=== PATIENT | female | born 1945 | race Caucasian/White ===

== ENCOUNTER 2023-12-27 05:32 | Inpatient (IN) | payer OTHER ==
[~2023-12-27] VITALS: Ht 170.2 cm; Wt 88.0 kg
[2023-12-27 06:07] VITALS: BP_SYST 160; PULSE 72; RESP 16; TEMP 83.2; O2SAT 98
[2023-12-27 08:04] LABS: ALANINE AMINOTRANSFERASE 42 U/L (12-78); ALBUMIN 3.7 g/dL (3.4-4.8); ANION GAP 14 (5-15); ASPARTATE AMINOTRANSFERASE 44 U/L (10-37); BILIRUBIN,DIRECT 0.1 mg/dL (0.0-0.3); CALCIUM 10.1 mg/dL (8.4-11.0); CARBON DIOXIDE 27 mmol/L (23-29); CHLORIDE 101 mmol/L (98-107); CREATINE KINASE, TOTAL 53 U/L (26-192); CREATININE 2.43 mg/dL (0.55-1.30); GLUCOSE 136 mg/dL (74-106); SALICYLATE 1 mg/dL (3-30); SODIUM SERUM 142 mmol/L (136-145); TOTAL BILIRUBIN 0.4 mg/dL (0.0-1.0); TOTAL PROTEIN, SERUM 6.8 g/dL (6.4-8.3); UREA NITROGEN, BLOOD 58 mg/dL (8-21)
[2023-12-27 08:06] LABS: BASOPHILS % (AUTO) 0.3 % (0.0-2.0); EOSINOPHILS % (AUTO) 0.5 % (0.0-4.0); HEMATOCRIT 33.6 % (36-48); HEMOGLOBIN 11.4 g/dL (12.0-16.0); LYMPHOCYTES # (AUTO) 0.2 K/uL (1.0-5.5); LYMPHOCYTES % (AUTO) 3.7 % (20.5-51.5); MEAN CORPUSCULAR HEMOGLOBIN 31 pg (27-31); MEAN CORPUSCULAR HGB CONC 34 % (32-36); MEAN CORPUSCULAR VOLUME 92 fL (79.0-98.0); MONOCYTES # (AUTO) 0.1 K/uL (0.0-1.0); MONOCYTES % (AUTO) 2.6 % (1.7-9.3); NEUTROPHILS # (AUTO) 4.7 K/uL (1.8-7.7); NEUTROPHILS % (AUTO) 92.9 % (40.0-70.0); PLATELET COUNT (AUTO) 309 K/uL (130-430); RED BLOOD CELL COUNT(AUTO) 3.67 MIL/uL (4.2-6.2); RED CELL DISTRIBUTION WIDTH 15.8 % (9.0-15.0); WHITE BLOOD COUNT (AUTO) 5.1 K/uL (4.8-10.8)
[2023-12-27 08:08] LABS: ACETAMINOPHEN < 1 ug/mL (1-30)
[2023-12-27 08:09] LABS: ALCOHOL, BLOOD < 3 mg/dL (<10)
[2023-12-27 08:30] LABS: PROTHROMBIN TIME 10.3 SECS (9.5-12.5)
[2023-12-27 08:49] LABS: ACETONE, SERUM NEGATIVE (NEGATIVE)
[2023-12-27] MEDS: NACL 0.9% 1,000 ML IV ONE (09:21)
[2023-12-27 10:33] LABS: BILIRUBIN,URINE NEGATIVE (NEGATIVE); BLOOD, URINE NEGATIVE (NEGATIVE); CLARITY/URINE CLEAR (CLEAR); COLOR,URINE YELLOW (YELLOW); GLUCOSE,URINE NEGATIVE (NEGATIVE); KETONES,URINE NEGATIVE (NEGATIVE); LEUKOCYTE ESTERASE ,URINE NEGATIVE (NEGATIVE); NITRITE, URINE NEGATIVE (NEGATIVE); PH,URINE 5.5 (5.0-8.0); PROTEIN URINE NEGATIVE (NEGATIVE); UROBILINOGEN,URINE 0.2 (0.2-1.0)
[2023-12-27 11:21] LABS: BARBITURATE, URINE NEGATIVE (NEG <=200); BENZODIAZEPINE, URINE NEGATIVE (NEG <=150); CANNABINOID, URINE NEGATIVE (NEG <=50); COCAINE, URINE NEGATIVE (NEG <=150); METHAMPHETAMINES SCREEN,URINE NEGATIVE (NEG <=500); PHENCYCLIDINE SCREEN,URINE NEGATIVE (NEG <=25); URINE AMPHETAMINE NEGATIVE (NEG <=500); URINE METHADONE NEGATIVE (NEG <=200); URINE OXYCODONE SCREEN NEGATIVE (NEG <=100)
[2023-12-27 11:22] LABS: OPIATE, URINE POSITIVE (NEG <=100); UR TRICYCLIC ANTIDEPRESSANTS NEGATIVE (NEG <=300)
[2023-12-27 11:26] LABS: ALBUMIN 3.3 g/dL (3.4-4.8); BILIRUBIN,DIRECT 0.1 mg/dL (0.0-0.3); FREE T4 (FREE THYROXINE) 0.8 ng/dL (0.6-1.6); THYROID STIMULATING HORMONE 7.52 uIu/mL (0.34-4.82); TOTAL BILIRUBIN 0.3 mg/dL (0.0-1.0); TOTAL PROTEIN, SERUM 6.1 g/dL (6.4-8.3)
[2023-12-27] MEDS ORDERED: LORazepam 2 MG/ML VIAL IVP PRN (12:00)
[2023-12-27] MEDS ORDERED: HYDROcodone/ACETAMIN 5-325 MG TAB (NORCO/ VICODIN) PO PRN (12:00)
[2023-12-27] MEDS ORDERED: ONDANSETRON HCL 4 MG/2 ML VIAL IVP PRN (12:00)
[2023-12-27] MEDS ORDERED: ACETAMINOPHEN 325 MG TABLET PO PRN (12:00)
[2023-12-27] MEDS ORDERED: INSULIN LISPRO SLIDING SCALE 100 UNITS/ML, 3 ML VIAL (humaLOG) SUBCUT PRN (12:00)
[2023-12-27] MEDS ORDERED: CEFEPIME 1 GM/VIAL (MAXIPIME) ONE (16:09)
[2023-12-27] MEDS ORDERED: MIDO5TAB4 PO (17:00)
[2023-12-27] MEDS ORDERED: FERR-69 PO (17:00)
[2023-12-27] MEDS ORDERED: DOCU-144 PO (17:00)
[2023-12-27] MEDS ORDERED: ROPI3TAB21 PO (17:00)
[2023-12-27] MEDS ORDERED: FURO40TA5 PO (17:00)
[2023-12-27] MEDS ORDERED: GABA-529 PO (17:00)
[2023-12-27] MEDS ORDERED: TAMS-11 PO (17:00)
[2023-12-27] MEDS ORDERED: SENN8.6T19 PO (17:00)
[2023-12-27] MEDS ORDERED: ATOR40TA68 PO (17:00)
[2023-12-27] MEDS ORDERED: PRO40 PO (17:00)
[2023-12-27] MEDS ORDERED: CLOB59LO3 TP (17:00)
[2023-12-27] MEDS ORDERED: CEPH-548 PO (17:06)
[2023-12-27] MEDS ORDERED: BISA10SU61 RC (17:06)
[2023-12-27] MEDS ORDERED: MOM PO (17:06)
[2023-12-27] MEDS ORDERED: PANT40TA45 PO (17:06)
[2023-12-27] MEDS ORDERED: CLOB15OI17 (17:06)
[2023-12-27] MEDS ORDERED: HYDR-3917 PO (17:06)
[2023-12-27] MEDS ORDERED: TRAM50TA2 PO (17:06)
[2023-12-27] MEDS ORDERED: FLEET RC (17:06)
[2023-12-27] MEDS ORDERED: LACT10SO7 PO (17:06)
[2023-12-27] MEDS ORDERED: BACTROBAN TP (17:06)
[2023-12-27] MEDS ORDERED: VANCOMYCIN HCL 500 MG/VIAL IV ONE ×2 (17:39→19:13)
[2023-12-27] MEDS: DEXTROSE 50% JECT 50 ML DISP.SYRIN IVP PRN (17:40)
[2023-12-27] MEDS: CEFEPIME 1 GM in D5W 50 ML IV ONE (17:40)
[2023-12-27] MEDS: VANCOMYCIN HCL 500 MG in NS 100 ML IV SCH (17:43)
[2023-12-27] MEDS ORDERED: NACL 0.9% 1,000 ML IV SCH (18:30)
[2023-12-27] MEDS: NACL 0.9% 500 ML IV ONE (22:09)
[2023-12-27] MEDS: KCL 20 mEq in D5/0.45NS 1000mL 1,000 ML IV SCH (22:38)
[2023-12-27] MEDS: KCL 20 mEq in D5/0.45NS 1000mL 1,000 ML IV ONE (22:39)
[2023-12-28] VITALS (8 sets, daily range): BP systolic 95–132; PULSE 78–93; RESP 14–20; TEMP 96.6–98.9; O2SAT 95–99
[2023-12-28] MEDS: LEVOTHYROXINE SODIUM 0.025 MG TABLET PO SCH (06:15)
[2023-12-28 07:38] LABS: ALANINE AMINOTRANSFERASE 36 U/L (12-78); ALBUMIN 3.1 g/dL (3.4-4.8); ANION GAP 12 (5-15); ASPARTATE AMINOTRANSFERASE 43 U/L (10-37); CALCIUM 9.1 mg/dL (8.4-11.0); CARBON DIOXIDE 25 mmol/L (23-29); CHLORIDE 108 mmol/L (98-107); CREATININE 2.45 mg/dL (0.55-1.30); GLUCOSE 88 mg/dL (74-106); PHOSPHORUS 4.2 mg/dL (2.7-4.5); POTASSIUM 3.8 mmol/L (3.5-5.1); SODIUM SERUM 145 mmol/L (136-145); TOTAL BILIRUBIN 0.4 mg/dL (0.0-1.0); TOTAL PROTEIN, SERUM 6.2 g/dL (6.4-8.3); UREA NITROGEN, BLOOD 53 mg/dL (8-21)
[2023-12-28 07:39] LABS: BASOPHILS % (AUTO) 0.3 % (0.0-2.0); EOSINOPHILS # (AUTO) 0.1 K/uL (0.0-0.4); EOSINOPHILS % (AUTO) 2.4 % (0.0-4.0); HEMOGLOBIN 10.6 g/dL (12.0-16.0); LYMPHOCYTES # (AUTO) 0.3 K/uL (1.0-5.5); LYMPHOCYTES % (AUTO) 4.7 % (20.5-51.5); MEAN CORPUSCULAR HEMOGLOBIN 31 pg (27-31); MEAN CORPUSCULAR HGB CONC 33 % (32-36); MEAN CORPUSCULAR VOLUME 93 fL (79.0-98.0); MONOCYTES # (AUTO) 0.4 K/uL (0.0-1.0); MONOCYTES % (AUTO) 6.4 % (1.7-9.3); NEUTROPHILS # (AUTO) 5.3 K/uL (1.8-7.7); NEUTROPHILS % (AUTO) 86.2 % (40.0-70.0); PLATELET COUNT (AUTO) 276 K/uL (130-430); RED BLOOD CELL COUNT(AUTO) 3.43 MIL/uL (4.2-6.2); RED CELL DISTRIBUTION WIDTH 16.6 % (9.0-15.0); WHITE BLOOD COUNT (AUTO) 6.2 K/uL (4.8-10.8)
[2023-12-28 08:28] LABS: HEMOGLOBIN A1C 5.1 % (<5.7)
[2023-12-28] MEDS: DEXTROSE 50% JECT 50 ML DISP.SYRIN IVP ONE (09:18)
[2023-12-28] MEDS: CEFEPIME 1 GM in D5W 50 ML IV SCH (09:50)
[2023-12-28] MEDS: KCL 20 mEq in D5/0.45NS 1000mL 1,000 ML IV SCH (09:55)
[2023-12-28 11:05] LABS: BLOOD GAS PH 7.342 (7.350-7.450)
[2023-12-28 11:06] LABS: ABG O2 SAT% ESTIMATE 95.1 % (94.0-98.0); ALLEN'S TEST POSITIVE (P); BLOOD GAS BASE EXCESS 11.3 mmol/L (-2.0-3.0); BLOOD GAS HCO3 22.6 mmol/L (21.0-28.0); BLOOD GAS PCO2 42.6 mmHg (32.0-45.0); BLOOD GAS PO2 79.2 mmHg (83.0-108.0)
[2023-12-28] MEDS: HEPARIN SODIUM,PORCINE 5,000 UNITS/ML VIAL SUBCUT SCH (11:59)
[2023-12-29 00:02] VITALS: BP_SYST 113; PULSE 76; RESP 19; TEMP 98
[2023-12-29 08:00] VITALS: BP_SYST 119; PULSE 86; RESP 16; TEMP 97.3; O2SAT 96
[2023-12-29 08:10] VITALS: O2SAT 98
[2023-12-29 08:17] LABS: BASOPHILS % (AUTO) 0.6 % (0.0-2.0); EOSINOPHILS # (AUTO) 0.3 K/uL (0.0-0.4); EOSINOPHILS % (AUTO) 3.6 % (0.0-4.0); HEMATOCRIT 32.4 % (36-48); HEMOGLOBIN 10.6 g/dL (12.0-16.0); LYMPHOCYTES # (AUTO) 0.6 K/uL (1.0-5.5); LYMPHOCYTES % (AUTO) 8.1 % (20.5-51.5); MEAN CORPUSCULAR HEMOGLOBIN 31 pg (27-31); MEAN CORPUSCULAR HGB CONC 33 % (32-36); MEAN CORPUSCULAR VOLUME 94 fL (79.0-98.0); MONOCYTES # (AUTO) 0.6 K/uL (0.0-1.0); NEUTROPHILS # (AUTO) 6.1 K/uL (1.8-7.7); NEUTROPHILS % (AUTO) 79.7 % (40.0-70.0); PLATELET COUNT (AUTO) 210 K/uL (130-430); RED BLOOD CELL COUNT(AUTO) 3.46 MIL/uL (4.2-6.2); WHITE BLOOD COUNT (AUTO) 7.6 K/uL (4.8-10.8)
[2023-12-29] MEDS: BALSAM PERU/CASTOR OIL 56.7 GM OINT...G. TP SCH (08:23)
[2023-12-29 09:06] LABS: ALANINE AMINOTRANSFERASE 35 U/L (12-78); ALBUMIN 2.5 g/dL (3.4-4.8); ANION GAP 8 (5-15); CALCIUM 9.4 mg/dL (8.4-11.0); CARBON DIOXIDE 26 mmol/L (23-29); CHLORIDE 111 mmol/L (98-107); CREATININE 2.46 mg/dL (0.55-1.30); GLUCOSE 86 mg/dL (74-106); POTASSIUM 4.1 mmol/L (3.5-5.1); SODIUM SERUM 145 mmol/L (136-145); TOTAL BILIRUBIN 0.5 mg/dL (0.0-1.0); TOTAL PROTEIN, SERUM 6.1 g/dL (6.4-8.3); UREA NITROGEN, BLOOD 54 mg/dL (8-21)
[2023-12-29 10:25] LABS: ASPARTATE AMINOTRANSFERASE 74 U/L (10-37)
[2023-12-29 12:57] VITALS: BP_SYST 126; PULSE 97; RESP 18; TEMP 97; O2SAT 97
[2023-12-29 16:00] VITALS: BP_SYST 108; PULSE 93; RESP 16; TEMP 98; O2SAT 95
[2023-12-29 20:02] VITALS: BP_SYST 122; PULSE 96; RESP 19; TEMP 98.1; O2SAT 95; O2SAT 96
[2023-12-30] VITALS (7 sets, daily range): BP systolic 103–149; PULSE 79–99; RESP 16–19; TEMP 93.5–98.9; O2SAT 94–99
[2023-12-30 10:10] LABS: BASOPHILS # (AUTO) 0.1 K/uL (0.0-0.2); BASOPHILS % (AUTO) 0.5 % (0.0-2.0); EOSINOPHILS # (AUTO) 0.4 K/uL (0.0-0.4); HEMOGLOBIN 10.4 g/dL (12.0-16.0); LYMPHOCYTES # (AUTO) 0.6 K/uL (1.0-5.5)
[2023-12-30 10:24] LABS: EOSINOPHILS % (AUTO) 3.4 % (0.0-4.0); HEMATOCRIT 31.9 % (36-48); LYMPHOCYTES % (AUTO) 5.6 % (20.5-51.5); MEAN CORPUSCULAR HEMOGLOBIN 31 pg (27-31); MEAN CORPUSCULAR HGB CONC 33 % (32-36); MEAN CORPUSCULAR VOLUME 94 fL (79.0-98.0); MONOCYTES # (AUTO) 1.1 K/uL (0.0-1.0); MONOCYTES % (AUTO) 10.4 % (1.7-9.3); NEUTROPHILS # (AUTO) 8.9 K/uL (1.8-7.7); NEUTROPHILS % (AUTO) 80.1 % (40.0-70.0); PLATELET COUNT (AUTO) 190 K/uL (130-430); RED BLOOD CELL COUNT(AUTO) 3.38 MIL/uL (4.2-6.2); RED CELL DISTRIBUTION WIDTH 16.4 % (9.0-15.0)
[2023-12-30 10:34] LABS: ALANINE AMINOTRANSFERASE 35 U/L (12-78); ALBUMIN 2.7 g/dL (3.4-4.8); ANION GAP 11 (5-15); ASPARTATE AMINOTRANSFERASE 56 U/L (10-37); CALCIUM 9.9 mg/dL (8.4-11.0); CARBON DIOXIDE 24 mmol/L (23-29); CHLORIDE 111 mmol/L (98-107); CREATININE 2.15 mg/dL (0.55-1.30); GLUCOSE 82 mg/dL (74-106); POTASSIUM 4.2 mmol/L (3.5-5.1); SODIUM SERUM 146 mmol/L (136-145); TOTAL BILIRUBIN 0.8 mg/dL (0.0-1.0); TOTAL PROTEIN, SERUM 6.4 g/dL (6.4-8.3); UREA NITROGEN, BLOOD 42 mg/dL (8-21)
[2023-12-30] MEDS: levETIRAcetam 500 MG in NS 100 ML IV SCH (21:10)
[2023-12-31] VITALS (7 sets, daily range): BP systolic 108–143; PULSE 79–92; RESP 16–20; TEMP 96.8–98.2; O2SAT 98–100
[2023-12-31 07:41] LABS: BASOPHILS % (AUTO) 0.4 % (0.0-2.0); EOSINOPHILS # (AUTO) 0.5 K/uL (0.0-0.4); EOSINOPHILS % (AUTO) 5.7 % (0.0-4.0); HEMATOCRIT 29.5 % (36-48); HEMOGLOBIN 9.5 g/dL (12.0-16.0); LYMPHOCYTES # (AUTO) 0.6 K/uL (1.0-5.5); LYMPHOCYTES % (AUTO) 6.1 % (20.5-51.5); MEAN CORPUSCULAR HEMOGLOBIN 31 pg (27-31); MEAN CORPUSCULAR HGB CONC 32 % (32-36); MEAN CORPUSCULAR VOLUME 95 fL (79.0-98.0); MONOCYTES # (AUTO) 0.8 K/uL (0.0-1.0); MONOCYTES % (AUTO) 8.5 % (1.7-9.3); NEUTROPHILS # (AUTO) 7.4 K/uL (1.8-7.7); NEUTROPHILS % (AUTO) 79.3 % (40.0-70.0); PLATELET COUNT (AUTO) 189 K/uL (130-430); RED CELL DISTRIBUTION WIDTH 16.9 % (9.0-15.0); WHITE BLOOD COUNT (AUTO) 9.4 K/uL (4.8-10.8)
[2023-12-31 08:02] LABS: ALANINE AMINOTRANSFERASE 33 U/L (12-78); ALBUMIN 2.3 g/dL (3.4-4.8); ANION GAP 14 (5-15); ASPARTATE AMINOTRANSFERASE 47 U/L (10-37); CALCIUM 10.2 mg/dL (8.4-11.0); CARBON DIOXIDE 22 mmol/L (23-29); CHLORIDE 114 mmol/L (98-107); CREATININE 1.87 mg/dL (0.55-1.30); GLUCOSE 92 mg/dL (74-106); POTASSIUM 3.9 mmol/L (3.5-5.1); SODIUM SERUM 150 mmol/L (136-145); TOTAL BILIRUBIN 0.7 mg/dL (0.0-1.0); UREA NITROGEN, BLOOD 37 mg/dL (8-21)
[2024-01-01] VITALS (7 sets, daily range): BP systolic 116–143; PULSE 70–89; RESP 16–18; TEMP 97.4–99; O2SAT 95–100
[2024-01-01 09:39] LABS: BASOPHILS % (AUTO) 0.4 % (0.0-2.0); EOSINOPHILS # (AUTO) 0.6 K/uL (0.0-0.4); EOSINOPHILS % (AUTO) 6.6 % (0.0-4.0); HEMATOCRIT 27.8 % (36-48); HEMOGLOBIN 9.1 g/dL (12.0-16.0); LYMPHOCYTES # (AUTO) 0.6 K/uL (1.0-5.5); LYMPHOCYTES % (AUTO) 6.9 % (20.5-51.5); MEAN CORPUSCULAR HEMOGLOBIN 31 pg (27-31); MEAN CORPUSCULAR HGB CONC 33 % (32-36); MEAN CORPUSCULAR VOLUME 95 fL (79.0-98.0); MONOCYTES # (AUTO) 0.8 K/uL (0.0-1.0); MONOCYTES % (AUTO) 9.6 % (1.7-9.3); NEUTROPHILS # (AUTO) 6.5 K/uL (1.8-7.7); NEUTROPHILS % (AUTO) 76.5 % (40.0-70.0); PLATELET COUNT (AUTO) 195 K/uL (130-430); RED BLOOD CELL COUNT(AUTO) 2.93 MIL/uL (4.2-6.2); RED CELL DISTRIBUTION WIDTH 16.8 % (9.0-15.0); WHITE BLOOD COUNT (AUTO) 8.5 K/uL (4.8-10.8)
[2024-01-01 10:12] LABS: ALANINE AMINOTRANSFERASE 37 U/L (12-78); ANION GAP 12 (5-15); ASPARTATE AMINOTRANSFERASE 53 U/L (10-37); CALCIUM 10.3 mg/dL (8.4-11.0); CARBON DIOXIDE 22 mmol/L (23-29); CHLORIDE 117 mmol/L (98-107); GLUCOSE 98 mg/dL (74-106); POTASSIUM 3.8 mmol/L (3.5-5.1); SODIUM SERUM 151 mmol/L (136-145); TOTAL BILIRUBIN 0.8 mg/dL (0.0-1.0); TOTAL PROTEIN, SERUM 5.8 g/dL (6.4-8.3); UREA NITROGEN, BLOOD 33 mg/dL (8-21)
[2024-01-01] MEDS ORDERED: VANCOMYCIN HCL ORAL SOLUTION 25 MG/ML, 150 ML PO SCH (17:45)
[2024-01-01] MEDS: VANCOMYCIN HCL ORAL SOLUTION 25 MG/ML, 150 ML PO SCH (18:45)
[2024-01-01] MEDS: D5W 1,000 ML IV SCH (20:41)
[2024-01-02 01:44] VITALS: BP_SYST 141; PULSE 86; RESP 16; TEMP 97.5; O2SAT 97
[2024-01-02 07:25] VITALS: BP_SYST 126; PULSE 74; RESP 18; TEMP 98.4; O2SAT 99
[2024-01-02 09:00] VITALS: O2SAT 99
[2024-01-02 09:48] LABS: BASOPHILS % (AUTO) 0.3 % (0.0-2.0); EOSINOPHILS # (AUTO) 0.6 K/uL (0.0-0.4); EOSINOPHILS % (AUTO) 6.5 % (0.0-4.0); HEMATOCRIT 26.5 % (36-48); HEMOGLOBIN 8.7 g/dL (12.0-16.0); LYMPHOCYTES # (AUTO) 0.6 K/uL (1.0-5.5); LYMPHOCYTES % (AUTO) 6.1 % (20.5-51.5); MEAN CORPUSCULAR HEMOGLOBIN 31 pg (27-31); MEAN CORPUSCULAR HGB CONC 33 % (32-36); MEAN CORPUSCULAR VOLUME 95 fL (79.0-98.0); MONOCYTES # (AUTO) 0.8 K/uL (0.0-1.0); MONOCYTES % (AUTO) 7.8 % (1.7-9.3); NEUTROPHILS # (AUTO) 7.9 K/uL (1.8-7.7); NEUTROPHILS % (AUTO) 79.3 % (40.0-70.0); PLATELET COUNT (AUTO) 222 K/uL (130-430); RED CELL DISTRIBUTION WIDTH 16.7 % (9.0-15.0)
[2024-01-02 10:18] LABS: ALBUMIN 1.9 g/dL (3.4-4.8); ANION GAP 11 (5-15); CALCIUM 10.5 mg/dL (8.4-11.0); CARBON DIOXIDE 22 mmol/L (23-29); CHLORIDE 113 mmol/L (98-107); CREATININE 1.68 mg/dL (0.55-1.30); GLUCOSE 117 mg/dL (74-106); POTASSIUM 3.6 mmol/L (3.5-5.1); SODIUM SERUM 146 mmol/L (136-145); TOTAL BILIRUBIN 0.7 mg/dL (0.0-1.0); UREA NITROGEN, BLOOD 30 mg/dL (8-21)
[2024-01-02 10:32] LABS: ALANINE AMINOTRANSFERASE 86 U/L (12-78); ASPARTATE AMINOTRANSFERASE 168 U/L (10-37)
[2024-01-02 12:07] VITALS: BP_SYST 142; PULSE 82; RESP 18; TEMP 97.9; O2SAT 99
[2024-01-02 16:00] VITALS: BP_SYST 131; PULSE 69; RESP 16; TEMP 97.6; O2SAT 99
[2024-01-02 21:04] VITALS: BP_SYST 120; PULSE 70; RESP 18; TEMP 97; O2SAT 96
[2024-01-03 10:07] LABS: HEPATITIS A AB, IgM Negative (Negative); HEPATITIS B SURFACE AG Negative (Negative); HEPATITIS C VIRUS AB Non Reactive (Non Reactive)
[2024-01-03 12:07] LABS: HEPATITIS B CORE AB, IgM Negative (Negative)
== END 2024-01-03 23:00 | disposition hospice, home (50) | DRG 871 ==
LOC: SED 05:32 → STU 11:47 → UNDODISIN 01-02 23:00
PROVIDERS: ADMIT Internal Medicine; ATTEND Internal Medicine
PROC: 4A00X4Z Measurement of Central Nervous Electrical Activity, External Approach (ICD-10-PCS; principal; 2023-12-29)
PROC: 0DH67UZ Insertion of Feeding Device into Stomach, Via Natural or Artificial Opening (ICD-10-PCS; 2024-01-01)
DX: A41.9 Sepsis, unspecified organism (principal); G93.41 Metabolic encephalopathy; N17.9 Acute kidney failure, unspecified; E87.0 Hyperosmolality and hypernatremia; A04.72 Enterocolitis due to Clostridium difficile, not specified as recurrent; I49.5 Sick sinus syndrome; D64.9 Anemia, unspecified; R74.01 Elevation of levels of liver transaminase levels; N18.32 Chronic kidney disease, stage 3b; E87.6 Hypokalemia; I12.9 Hypertensive chronic kidney disease with stage 1 through stage 4 chronic kidney disease, or unspecified chronic kidney disease; R68.0 Hypothermia, not associated with low environmental temperature; G20.A1 Parkinson's disease without dyskinesia, without mention of fluctuations; I10 Essential (primary) hypertension; F02.80 Dementia in other diseases classified elsewhere, unspecified severity, without behavioral disturbance, psychotic disturbance, mood disturbance, and anxiety; R13.10 Dysphagia, unspecified; Z90.710 Acquired absence of both cervix and uterus; Z95.0 Presence of cardiac pacemaker; Z79.899 Other long term (current) drug therapy; Z85.828 Personal history of other malignant neoplasm of skin
CPT/HCPCS: 36415; 36600; 62270; 70450-TC; 71045; 76770; 80048; 80053; 80074; 80076; 80202; 80307; 81001; 81003; 82009; 82140; 82550; 82803; 82948; 83037; 83605; 83735; 84100; 84439; 84443; 84484; 85025; 85610; 85730; 87040; 87081; 87230; 92610-GN; 93005; 95816; 97110-GP; 97530-GP; 99285; G0378; G0480; G0481; G0482; J0692; J1644; J1953; J3370; J7030; J7050; J7060; J7120